=== PATIENT | female | born 1985 | race Hispanic/Latino ===

== ENCOUNTER 2022-07-24 09:00 | Observation (INO) | payer MEDICAID, SELFPAY ==
[2022-07-24] VITALS (37 sets, daily range): BP systolic 112–173; BP diastolic 68–116; PULSE 76–110; RESP 11–32; TEMP 36.7–36.8; O2SAT 96–100
--- NOTE | ~2022-07-24 | XR_ITS ---
EXAMINATION: XR chest 2V DATE: 07/24/2022 11:54 INDICATION: Cough for three weeks TECHNIQUE: PA and lateral views of the chest are obtained. COMPARISON: None available FINDINGS: The lungs are free of acute opacities. No pleural effusion or pneumothorax. The cardiomedia stinal silhouette is normal. There is mild thoracic spondylosis. IMPRESSION: 1. No acute cardiopulmonary abnormality. Reviewed, dictated and finalized at location L. CONSULTANT
--- NOTE | ~2022-07-24 | US_ITS ---
EXAMINATION: US carotid duplex BI DATE: 07/24/2022 16:59 INDICATION: Right facial paresthesias and numbness. TECHNIQUE: Grayscale, color Doppler, and pulsed Doppler images of the cervical carotid arteries were obtained. The degree of vessel stenosis is placed in one of the following categories: normal, <50%, 5 0-69%, >=70% but less than near-occlusion, near-occlusion, or total occlusion. Note that percent sten osis relative to normal distal artery lumen diameter is indirectly measured from velocity measurement s as described by Joss, et al. Radiology 2003; 229:340-346. COMPARISON: None. FINDINGS: RIGHT: The right common carotid artery (CCA) peak systolic velocity (PSV) is 121 cm/s. The right internal ca rotid artery (ICA) PSV is 90 cm/s. The right ICA end-diastolic velocity (EDV) is 43 cm/s. The right I CA/CCA PSV ratio is 0.7. Grayscale and color Doppler images yield an estimate of <50% diameter reduct ion from plaque in the ICA. There is antegrade flow in the right vertebral artery. LEFT: The left CCA PSV is 83 cm/s. The left ICA PSV is 84 cm/s. The left ICA EDV is 44 cm/s. The left ICA/C CA PSV ratio is 1.0. Grayscale and color Doppler images yield an estimate of <50% diameter reduction from plaque in the ICA. There is antegrade flow in the left vertebral artery. IMPRESSION: 1. <50% stenosis in the right internal carotid artery. 2. <50% stenosis in the left internal carotid artery. Reviewed, dictated and finalized at location A. FACTURING TECHNICIAN
--- NOTE | ~2022-07-24 | CT_ITS ---
EXAMINATION: CT brain wo con INDICATION: Right-sided facial numbness COMPARISON: None TECHNIQUE: Standard unenhanced head CT. The dose-length product (DLP) was 605.33 mGy-cm. The mA was a djusted according to patient size. Iterative reconstruction technique was employed. FINDINGS: There is no intracranial hemorrhage, acute infarction, or abnormal mass lesion. The ventric les are normal. There is no abnormal mass effect or midline shift. The mariano-white matter differentiat ion is normal. The basal cisterns are patent. The orbits are normal. The paranasal sinuses, mastoids and calvarium are normal. IMPRESSION: 1. No acute intracranial abnormality. Reviewed, dictated and finalized at location L. STITCHER
--- NOTE | ~2022-07-24 | MR_ITS ---
EXAMINATION: MR brain/brain stem wo/w con DATE: 07/25/2022 08:06 INDICATION: Right-sided face paresthesias. TECHNIQUE: Magnetic resonance imaging (MRI) of the brain and brainstem was performed without and with 20 mL MultiHance intravenous contrast. COMPARISON: Head CT 07/24/2022 FINDINGS: There is no intracranial hemorrhage, acute infarction, or abnormal intracranial mass lesion . The ventricles are normal in size. The paranasal sinuses are clear. The orbits are normal. The mast oid air cells are normal. IMPRESSION: 1. Normal brain. Reviewed, dictated and finalized at location A. HOST/HOSTESS IMPRESSION: 1. Normal brain.
--- NOTE | 2022-07-24 10:43 | ECG_ITS ---
Measurements Intervals [place] Rate: 87 P: 15 LA: 147 QRS: 30 QRSD: 85 T: 12 QT: 346 QTc: 418 Interpretive Statements SINUS RHYTHM NO PREVIOUS ECG AVAILABLE FOR COMPARISON Electronically Signed On 07-24-2022 15:46:14 EVENT AV OPERATOR by Jonathan Kuhn M.D.
--- NOTE | 2022-07-24 10:45 | ED.NEUROSD ---
HPI - Neuro Symptoms/Deficit General Chief Complaint: Neuro Symptoms/Deficit <EVELINA Bran Last Filed: 07/24/22 17:57> Stated Complaint: Referred from urgent care - cough for 3 weeks <EVELINA Bran Filed: 07/24/22 17:57> Time Seen by Provider: 07/24/22 10:12 <EVELINA Bran Last Filed: 07/24/22 17:57> Source: patient <EVELINA Bran Last Filed: 07/24/22 17:57> Mode of arrival: ambulatory <EVELINA Bran Filed: 07/24/22 17:57> Limitations: no limitations <EVELINA Bran Filed: 07/24/22 17:57> History of Present Illness HPI Narrative: Patient is a 36-year-old female who presents the ED with report of right-sided facial numbness/tingling. Patient reports she has had a cough and sinus issues for the last 3 weeks. She developed some tingling on the right side of her face last night, but did not think much of it. She woke up around 6:30 AM this morning with persistent paresthesias in her right-sided face. She states it feels like she just went to the dentist and had lidocaine administered to her right-sided lips, chin, nose, around her eye. She denies any other neurologic symptoms, denies confusion, slurred speech, dysphagia, dysarthria, weakness of arm or leg, dizziness, lightheadedness, headache, vision changes, chest pain, difficulty breathing. Patient went to an urgent care this morning and was referred here for further evaluation. Patient reports a history of a TIA 12 years ago which was attributed to her being on oral contraceptives. <EVELINA Bran Last Filed: 07/24/22 17:57> Related Data Allergies/Adverse Reactions: Allergies Allergy/AdvReac Type Severity Reaction Status Date / Time diphenhydramine Allergy Anaphylaxis Verified 07/24/22 09:33 [From Benadryl] <EVELINA Bran Filed: 07/24/22 17:57> Review of Systems Review of Systems: CONSTITUTIONAL: Denies fever, chills, or sweats. EYES: Denies visual changes. ENT: See HPI. CARDIOVASCULAR: Denies chest pain, palpitations, or edema. RESPIRATORY: See HPI. GASTROINTESTINAL: Denies abdominal pain, nausea, vomiting, or diarrhea. GENITOURINARY: Denies dysuria or hematuria. SKIN: Denies rash or itching. MUSCULOSKELETAL: Denies back pain, joint pain, or myalgia. NEUROLOGIC: See HPI. <Samaria Moreau PA-C - Last Filed: 07/24/22 17:57> All systems reviewed & are unremarkable except as noted in HPI and below <Samaria Moreau PA-C - Last Filed: 07/24/22 17:57> [facility] Past Medical History Medical History: Medical History Interstitial cystitis Transient ischemic attack Attributed to oral contraceptives. <Samaria Moreau PA-C - Last Filed: 07/24/22 17:57> Surgical History Surgical History: Surgical History History of cystoscopy <Samaria Moreau PA-C - Last Filed: 07/24/22 17:57> Family History Family History: Family History Mother Trigeminal neuralgia Cerebrovascular accident Hypertension Father Diabetes mellitus <Samaria Moreau PA-C - Last Filed: 07/24/22 17:57> Social History Social History: Social History Social History: The patient lives in [place] with her family. She has 4-year-old twin boys. Nonsmoker. No alcohol or illicit substance abuse. She designates her mother is her surrogate decision maker and she wishes to be a full code. <Samaria Moreau PA-C - Last Filed: 07/24/22 17:57> Exam Narrative: GENERAL: Well appearing, morbidly obese, non-toxic, in no acute distress. HEAD: Normocephalic, atraumatic. EYES: PERRL/EOMI, conjunctivae clear bilaterally. No nystagmus. NOSE:
[2022-07-24 11:14] LABS: Basophils Absolute Auto 0.1 K/mm3 (0.0-0.1); Basophils Percent Auto 0.7 % (0.2-1.2); Eosinophils Absolute Auto 0.4 K/mm3 (0-0.3); Eosinophils Percent Auto 3.5 % (0-4.4); Hematocrit 43.2 % (37.0-47.0); Hemoglobin 14.4 g/dL (12.0-15.0); Immature Granulocyte Absolute 0.03 K/mm3 (0.00-0.031); Immature Granulocyte Percent A 0.3 % (0-0.5); Lymphocytes Absolute Auto 3.07 K/mm3 (0.9-3.2); Lymphocytes Percent Auto 30.5 % (18.3-44.2); Mean Corpuscular HGB Conc 33.3 g/dl (32-36); Mean Corpuscular Hemoglobin 28.9 pg (26-34); Mean Corpuscular Volume 86.7 fl (80-100); Mean Platelet Volume 9.2 fl (7.4-10.4); Monocytes Absolute Auto 0.5 K/mm3 (0.1-0.6); Monocytes Percent Auto 5.2 % (2.6-8.5); Neutrophils Percent Auto 59.8 % (45.5-73.1); Platelet Count Result 276 k/mm3 (150-375); Red Blood Count 4.98 M/mm3 (4.2-5.4); Red Cell Distribution Width 13.2 % (11.5-14.5); White Blood Count 10.1 K/mm3 (4.5-10.0)
[2022-07-24 11:23] LABS: Alanine Aminotransferase 49 U/L (6-35); Albumin Level 4.5 g/dL (3.5-5.1); Alkaline Phosphatase 65 U/L (38-126); Anion Gap 7 mmol/L (8-16); Aspartate Amino Transferase 36 U/L (14-36); Bilirubin,Total 0.4 mg/dL (0.2-1.3); Blood Urea Nitrogen 11 mg/dL (7-17); Calcium 8.8 mg/dL (8.4-10.2); Carbon Dioxide 28 mmol/L (22-30); Chloride 102 mmol/L (98-107); Estimated CRCL calculation 171 ml/min; Estimated Glomerular Filt Rate > 60; Glucose 112 mg/dL (65-110); Magnesium 1.9 mg/dL (1.6-2.3); Sodium 137 mmol/L (137-145)
[2022-07-24 11:26] LABS: Appearance Urine Clear (Clear); Bilirubin Urine Negative (Negative); Blood Urine Negative (Negative); Color Urine Yellow (Yellow); Glucose Urine UA Negative (Negative); Ketones Urine Negative (Negative); Leukocyte Esterase Ur Negative LEU/UL (Negative); Nitrate Urine Negative (Negative); Protein Urine Negative (Negative); Specific Grav Ur >= 1.030 (1.001-1.035); Urobilinogen Urine 0.2 mg/dL (<2.0); pH Urine 5.5 (5.0-9.0)
[2022-07-24 11:40] LABS: Add Urine Microscopic? NO
[2022-07-24 12:52] LABS: Influenza A QL RT-PCR Negative (Negative); Influenza B QL RT-PCR Negative (Negative); SARS-CoV-2 RNA PCR Negative
[2022-07-24] MEDS: ASPIRIN 325 MG TABLET PO (14:23)
--- NOTE | 2022-07-24 16:39 | PC.NURSE ---
reg diet food tray ordered
--- NOTE | 2022-07-24 17:00 | PM.IMHP ---
H&P: HPI History of Present Illness Date/Time: 07/24/22 17:00 Chief Complaint: Numbness and tingling of the right side of the face. Narrative: This is a pleasant 36-year-old female with history of TIA 12 to 14 years ago attributed to use of Nicole contraceptives who presented to the emergency department from home for evaluation of numbness and tingling on the right side of her face. Patient provides the following history. She had mild paresthesias over the right cheek when she went to bed last night and this morning her symptoms were worse with numbness and tingling throughout the entire right side of her face to include the right side of the lips, buccal mucosa, and tongue. She also has disturbed taste on that right side. She has had URI symptoms for last several weeks and while the symptoms have improved she continues to have a nonproductive cough. She denies headache, vertigo, visual changes, facial droop, and difficulty speaking and swallowing. She denies ear pain and has not noticed any wounds or vesicle. No chest pain, pleuritic pain, palpitations, or sensations of racing heart. She has a history of tick bite many years ago and was tested extensively and has no history of Lyme disease. Review of Systems Review of Systems: Twelve systems were reviewed and are negative except for as per HPI. [facility] Past Medical History Medical History (Updated 07/24/22 @ 17:46 by Dianne Roldan PA-C) Interstitial cystitis Transient ischemic attack Attributed to oral contraceptives. Surgical History Surgical History (Updated 07/24/22 @ 17:43 by Dianne Roldan PA-C) History of cystoscopy Family History Family History (Updated 07/24/22 @ 17:43 by Dianne Roldan PA-C) Mother Trigeminal neuralgia Cerebrovascular accident Hypertension Father Diabetes mellitus Social History Social History (Updated 07/24/22 @ 17:44 by Dianne Roldan PA-C) Social History: The patient lives in [place] with her family. She has 4-year-old twin boys. Nonsmoker. No alcohol or illicit substance abuse. She designates her mother is her surrogate decision maker and she wishes to be a full code. Meds Home Medications and Allergies Allergies Allergy/AdvReac Type Severity Reaction Status Date / Time diphenhydramine Allergy Anaphylaxis Verified 07/24/22 09:33 [From [facility]] Vital Signs Vital Signs - 24 hr 07/24/22 09:16 07/24/22 10:41 07/24/22 09:58 Pulse Rate 95 110 H 87 Respiratory Rate 16 18 15 Blood Pressure 145/101 H 112/85 Pulse Oximetry 98 97 98 Oxygen Delivery Room Air 07/24/22 10:00 07/24/22 10:01 07/24/22 10:15 Pulse Rate 84 86 81 Respiratory Rate 11 L 16 13 Blood Pressure 135/81 136/80 Pulse Oximetry 98 98 99 Oxygen Delivery 07/24/22 10:16 07/24/22 10:30 07/24/22 10:31 Pulse Rate 88 81 89 Respiratory Rate 20 12 20 Blood Pressure 130/78 Pulse Oximetry 98 99 99 Oxygen Delivery 07/24/22 10:45 07/24/22 10:46 07/24/22 11:01 Pulse Rate 85 107 H 100 Respiratory Rate 17 30 H 22 H Blood Pressure 158/101 H Pulse Oximetry 96 98 98 Oxygen Delivery 07/24/22 11:02 07/24/22 11:15 07/24/22 11:16 Pulse Rate 87 83 89 Respiratory Rate 14 18 21 H Blood Pressure 155/90 H 141/83 H Pulse Oximetry 99 99 99 Oxygen Delivery 07/24/22 11:52 07/24/22 11:54 07/24/22 12:17 Pulse Rate 92 88 110 H Respiratory Rate 18 14 32 H Blood Pressure 133/76 Pulse Oximetry 99 99 96 Oxygen Delivery 07/24/22 12:30 07/24/22 12:31 07/24/22 12:46 Pulse Rate 83 88 90 Respiratory Rate 18 19 22 H Blood Pressure 152/89 H Pulse Oximetry 98 98 99 Oxygen Delivery 07/24/22 13:37 07/24/22 13:45 07/24/22 13:46 Pulse Rate 88 98 95 Respiratory Rate 18 19 20 Blood Pressure 158/87 H 145/105 H Pulse Oximetry 98 97 97 Oxygen Delivery 07/24/22 14:00 07/24/22 14:01 07/24/22 15:25 Pulse Rate 93 85 84 Respiratory Rate 24 H 18 22 H Blood Pressure 160/105 H Pulse Oximetry 9
--- NOTE | 2022-07-24 18:59 | ADMGEN ---
This patient, Loren Dawkins, was admitted to Virtual Bed 3rd Floor-1. Patient/family oriented to hospital policies and general routines including ID bracelet, bed and alarms, visiting hours, pain management, procedures, bathroom and other care routines, personal items, smoking policy, room service/diet, and visiting hours. Information on how to activate the Rapid Response Team has been discussed. Patient/Family are encouraged to report perceived risks to care and to ask questions if they do not understand what they are told or what they should do.
[2022-07-25] VITALS: PULSE 88
[2022-07-25 04:00] VITALS: PULSE 87
[2022-07-25 05:27] LABS: Anion Gap 6 mmol/L (8-16); Blood Urea Nitrogen 11 mg/dL (7-17); Calcium 8.5 mg/dL (8.4-10.2); Carbon Dioxide 29 mmol/L (22-30); Chloride 105 mmol/L (98-107); Cholesterol 206 mg/dL (0-200); Estimated CRCL calculation 145 ml/min; Estimated Glomerular Filt Rate > 60; Glucose 129 mg/dL (65-110); HDL Direct 36 mg/dL; Sodium 140 mmol/L (137-145); Triglycerides 190 mg/dL (<150)
[2022-07-25 05:37] LABS: LDL Cholesterol Direct 119 mg/dL
[2022-07-25 06:00] VITALS: BP 145/81; PULSE 81; RESP 16; TEMP 36.4; O2SAT 100
[2022-07-25 07:02] LABS: Folic Acid 16.5 ng/mL (2.76->20)
[2022-07-25] MEDS: ASPIRIN 81 MG ENTERIC TABLET PO (08:07)
[2022-07-25] MEDS: MULTIVITAMINS /C LUTEIN (CENTRUM SILVER) TABLET *BKC 1 TAB PO (08:07)
[2022-07-25] MEDS: PERFLUTREN LIPID MICROSPHERES 1.5 ML VIAL DILUTED TO 10 ML TOTAL VOLUME IV PUSH (11:30)
--- NOTE | 2022-07-25 11:30 | IVDEFINITY ---
Prior to administration of IV Definity the patient was educated on the risks and benefits of the imaging enhancing agent including potential adverse side effects. The patient verbalized understanding. Allergies were verified. No exclusion criteria were identified and at least one of the following inclusion criteria were met: 1) physician request, 2) patient technically difficult to image (per the [employer] Echocardi[employer] guidelines of two or more segments not discernable within the apical view), or 3) questionable left ventricular function. ?
--- NOTE | 2022-07-25 11:49 | WPDNEURCNPN ---
Consult date: 07/25/22 HPI: Loren Dawkins is a 36 year old female admitted to the hospital through the emergency room with the complaints of right-sided facial numbness and tingling sensation in addition to recent history of cough and sinus issues of 3 weeks duration reportedly she developed right-sided tingling involving her face woke up around 630 in the morning with persistent paresthesia in her right side of the face as if she has gone to the dentist gave no history of any other associated neurological symptomatology, patient does have ongoing history of interstitial cystitis, TIA in the past attributed to oral contraceptives has no history of smoking or drinking initial examination in the emergency room documented decreased sharp touch sensation to the right side of the face but otherwise no focal neurological deficit vital signs were stable CBC was normal comprehensive metabolic panel was normal UA was negative testing for influenza A,B and sarswere negative. CT of the head was negative and EKG was without any atrial fibrillation brain MRI today is negative psoas the Doppler studies of the carotid PMFSH Past Medical History Medical History Interstitial cystitis Transient ischemic attack Attributed to oral contraceptives. Surgical History Surgical History History of cystoscopy Family History Family History Mother Trigeminal neuralgia Cerebrovascular accident Hypertension Father Diabetes mellitus Social History Social History Social History: The patient lives in [place] with her family. She has 4-year-old twin boys. Nonsmoker. No alcohol or illicit substance abuse. She designates her mother is her surrogate decision maker and she wishes to be a full code. Smoking status: Never smoker Alcohol intake: never Substance use: never Lack of Transportation: No Lack of Food: Never True Current Housing: I Have Housing Concerned About Future Housing: No Difficulty Paying Gas/Electric Bills: No Difficulty Paying for Meds: No Currently Unemployed: No Education: High School Diploma/GED Difficulty w/ Childcare or Family Care: No Spiritual care concerns: No Meds Home Medications and Allergies Home Medications Medication Instructions Recorded Confirmed Type multivit with minerals-iron 18 1 tablet PO DAILY 07/24/22 07/24/22 History mg-folic ac 400 mcg-vit K 25 mcg tablet (Adults Multivitamin) Allergies Allergy/AdvReac Type Severity Reaction Status Date / Time diphenhydramine Allergy Swelling Verified 07/24/22 18:48 [facility] Vital Signs Vital Signs - 24 hr 07/24/22 11:52 07/24/22 11:54 07/24/22 12:17 Temperature Pulse Rate 92 88 110 H Respiratory Rate 18 14 32 H Blood Pressure 133/76 Pulse Oximetry 99 99 96 07/24/22 12:30 07/24/22 12:31 07/24/22 12:46 Temperature Pulse Rate 83 88 90 Respiratory Rate 18 19 22 H Blood Pressure 152/89 H Pulse Oximetry 98 98 99 07/24/22 13:37 07/24/22 13:45 07/24/22 13:46 Temperature Pulse Rate 88 98 95 Respiratory Rate 18 19 20 Blood Pressure 158/87 H 145/105 H Pulse Oximetry 98 97 97 07/24/22 14:00 07/24/22 14:01 07/24/22 15:25 Temperature Pulse Rate 93 85 84 Respiratory Rate 24 H 18 22 H Blood Pressure 160/105 H Pulse Oximetry 97 98 97 07/24/22 15:30 07/24/22 15:31 07/24/22 15:45 Temperature Pulse Rate 90 87 85 Respiratory Rate 18 18 24 H Blood Pressure 159/84 H 157/114 H Pulse Oximetry 99 99 97 07/24/22 15:46 07/24/22 16:00 07/24/22 16:01 Temperature Pulse Rate 88 102 H 100 Respiratory Rate 16 12 19 Blood Pressure 173/116 H Pulse Oximetry 98 100 100 07/24/22 16:15 07/24/22 18:50 07/24/22 23:00 Temperature 36.7 C 36
[2022-07-25 12:00] VITALS: PULSE 102
--- NOTE | 2022-07-25 13:29 | WPDNEURCNPN ---
Assessment and Plan Assessment and plan (1) Facial paresthesia: Code(s): R20.2 - Paresthesia of skin Status: Acute Plan 1 impending Jones's palsy which has been ruled out 2 possibility of demyelinating disease in a younger person with a previous symptomatology but again the MRI of the brain is completely negative we do not need to pursue with spinal tap 3 TIA up possibility Doppler study of the carotid is less than 50% stenosis bilaterally she can be discharged with instruction to return to the office for the follow-up sign Dr. ng is thinking Consult date: 07/25/22 HPI: Loren Dawkins is a 36 year old female admitted to the hospital through the emergency room for the complaints of right-sided facial numbness and paresthesia along with the history of cough and sinus issues as per the information available symptomatology developed at last night but she woke up around 6:30 a.m. in the morning with persistent paresthesias on her right side of the face describing as if she has gone to the dentist received lidocaine she never had such symptomatology in the past but she does have a history of TIA about 12 years ago in addition to history of transient ischemic attack and also interstitial cystitis Review of Systems Review of Systems: All systems reviewed & are unremarkable except as noted in HPI and below PMFSH Past Medical History Medical History Interstitial cystitis Transient ischemic attack Attributed to oral contraceptives. Surgical History Surgical History History of cystoscopy Family History Family History Mother Trigeminal neuralgia Cerebrovascular accident Hypertension Father Diabetes mellitus Social History Social History Social History: The patient lives in [place] with her family. She has 4-year-old twin boys. Nonsmoker. No alcohol or illicit substance abuse. She designates her mother is her surrogate decision maker and she wishes to be a full code. Smoking status: Never smoker Alcohol intake: never Substance use: never Lack of Transportation: No Lack of Food: Never True Current Housing: I Have Housing Concerned About Future Housing: No Difficulty Paying Gas/Electric Bills: No Difficulty Paying for Meds: No Currently Unemployed: No Education: High School Diploma/GED Difficulty w/ Childcare or Family Care: No Spiritual care concerns: No Meds Home Medications and Allergies Home Medications Medication Instructions Recorded Confirmed Type multivit with minerals-iron 18 1 tablet PO DAILY 07/24/22 07/24/22 History mg-folic ac 400 mcg-vit K 25 mcg tablet (Adults Multivitamin) Allergies Allergy/AdvReac Type Severity Reaction Status Date / Time diphenhydramine Allergy Swelling Verified 07/24/22 18:48 [From [facility]] Vital Signs Vital Signs - 24 hr 07/24/22 13:37 07/24/22 13:45 07/24/22 13:46 Temperature Pulse Rate 88 98 95 Respiratory Rate 18 19 20 Blood Pressure 158/87 H 145/105 H Pulse Oximetry 98 97 97 07/24/22 14:00 07/24/22 14:01 07/24/22 15:25 Temperature Pulse Rate 93 85 84 Respiratory Rate 24 H 18 22 H Blood Pressure 160/105 H Pulse Oximetry 97 98 97 07/24/22 15:30 07/24/22 15:31 07/24/22 15:45 Temperature Pulse Rate 90 87 85 Respiratory Rate 18 18 24 H Blood Pressure 159/84 H 157/114 H Pulse Oximetry 99 99 97 07/24/22 15:46 07/24/22 16:00 07/24/22 16:01 Temperature Pulse Rate 88 102 H 100 Respiratory Rate 16 12 19 Blood Pressure 173/116 H Pulse Oximetry 98 100 100 07/24/22 16:15 07/24/22 18:50 07/24/22 23:00 Temperature 36.7 C 36.8 C Pulse Rate 90 84 76 Respiratory Rate 16 16 16 Blood Pressure 145/91 H 147/84 H 125/68 Pulse Oxime
[2022-07-25 13:48] VITALS: BP 128/77; PULSE 87; RESP 18; TEMP 36.8; O2SAT 98
--- NOTE | 2022-07-25 15:09 | PM.DS ---
DS: Admitting Diagnosis Discharge Date 07/25/22 1529 Admitting Diagnosis Paresthesia of skin Elevated blood-pressure reading, without diagnosis of hypertension DS: Discharge Diagnosis Discharge Diagnosis (1) Facial paresthesia: Code(s): R20.2 - Paresthesia of skin Status: Acute (2) Elevated blood pressure reading: Code(s): R03.0 - Elevated blood-pressure reading, without diagnosis of hypertension Status: Acute (3) Hyperlipidemia: Code(s): E78.5 - Hyperlipidemia, unspecified Status: Chronic DS: Summary Hospital Course Reason for hospitalization: Numbness and tingling right side of heart. Hospital Course: Loren Dawkins is a 36-year-old female with history of TIA 12 to 14 years ago attributed to use of Nicole contraception who presented to the emergency department from home for evaluation of numbness and tingling on the right side of her face. She reported mild paresthesias over the right cheek when she went to bed the night before admission and the next morning her symptoms were worse with numbness and tingling throughout the entire right side of her face, including the right side of the lips, buccal mucosa, and tongue. She also has disturbed taste on that right side. She had URI symptoms for last several weeks and while the symptoms improved she continued to have a nonproductive cough. She denied headache, vertigo, visual changes, facial droop, and difficulty speaking and swallowing. She denied ear pain and has not noticed any wounds or vesicle. No chest pain, pleuritic pain, palpitations, or sensations of racing heart. She also reported a history of tick bite many years ago and was tested extensively and has no history of Lyme disease. She was admitted to the medical floor for TIA work up and evaluation by Neurology. MRI was negative for acute stroke. Physical exam was negative for Jones's Palsy. EKG showed SR without ectopy. Echocardiogram was negative for PFO. BP improved 128/77 on discharge without starting antihypertensives. Lipid panel showed LDL 119, HDL 36, and triglycerides 190. ACVSD lifetime risk 39%. Given her previous TIA and symptoms, baby aspirin 81 mg PO and lipitor 40 mg PO were prescribed. She will follow up with neurology outpatient for further workup for demyelinating disease. She was discharged home in stable condition. Status at Discharge Cognitive/behavioral status at discharge: Alert, AOx4. Baseline Functional status at discharge: independent ambulation Overall status at discharge: patient is progressing back to baseline Time Spent with Patient Time attestation: Total time spent providing and/or coordinating discharge services: Time spent: Greater than 30 minutes Exam Narrative: General: Well-developed female sitting up in bed no distress. BMI: 41.4. Temp 98.1F, HR 87, RR 18, BP 128/77, spO2 98% room air. HEENT: Normocephalic, atraumatic. PERRL, EOMI. Sclera anicteric. Oral mucosa moist. Oropharynx clear. Neck: Supple. No carotid bruits. Respiratory: Lungs are clear to auscultation bilaterally. Cardiovascular: Regular rate and rhythm with S1-S2. No murmur. Gastrointestinal: Abdomen is soft, obese, nontender, and nondistended with positive bowel sounds. Skin: Warm and dry. No rash or lesions on limited exam. Extremities: No cyanosis, clubbing, or edema. Radial and pedal pulses intact. Neurological: Alert and oriented x4. Cranial nerves 2-12 are grossly intact. She is able to close her eyes tightly. Speech is clear. No facial asymmetry. No pronator drift. Normal finger-nose, rapid alternating movements, and his chin. Strength 5/5 in upper and lower extremities. Decreased sharp touch on the right side of the face. Hand blocking machine operator second and foot pushes equal bilaterally. Psychiatric: Pleasant and cooperative with normal mood and affect. Judgment and insight intact. DS: Data Data Completed and Pending Labs on day of discharge: Labs from last 24 hours 07/25/22 07/25/22 0
--- NOTE | 2022-07-25 16:10 | ECHO_ITS ---
Patient Info Name: Loren Dawkins Age: 36 years : 1985 Gender: Female Ht: 67 in Wt: 264 lbs BSA: 2.44 m2 HR: 81 bpm BP: 145 / 81 mmHg Heart Rhythm: Sinus Rhythm Technical Quality: Fair Exam Date: 07/25/2022 10:40 AM Exam Location: [facility] Patient Status: Outpatient Admit Date: 07/24/2022 Staff Ordering Physician: Dianne Roldan PA-C Gun Striper: Jenni Wong RDCS Attending Provider: Arnav Berg MD Referring Physician: Jamar GRAHAM; Exam Type: CA echo doppler w bubble study Study Info Indications - neuro symptoms, hx tia Complete two-dimentional, color flow and Doppler transthoracic echocardiogram is performed with agitated saline and with contrast to opacify the left ventricle and to improve the delineation of the left ventricle endocardial borders. Contrast/Agitated Saline Contrast/Ag. Saline: Definity Amount: 3.00 ml Administered By: Jenni Wong RDCS Existing IV Access: Yes IV Access Condition: patent with no signs of infiltration Contrast/Ag. Saline: Agitated Saline Amount: 30.00 ml Administered By: Ari Tineo ARIK Existing IV Access: Yes IV Access Condition: patent with no signs of infiltration Summary 1. Left ventricular chamber dimension is normal. 2. Definity contrast administered improved wall motion interpretation. 3. Left ventricular systolic function is normal, estimated at 60-65%. 4. The left ventricular diastolic function is grade I diastolic dysfunction. 5. E/e' 7 is not elevated. 6. No pulmonary hypertension, estimated pulmonary arterial systolic pressure is 21 mmHg. Left Ventricle E/e' 7 is not elevated. Definity contrast administered improved wall motion interpretation. Left ventricular chamber dimension is normal. Left ventricular systolic function is normal, estimated at 60-65%. The left ventricular diastolic function is grade I diastolic dysfunction. Right Ventricle Right ventricular systolic function is normal and with normal TAPSE 2.3 cm. Right ventricular chamber dimension is normal. Left Atria Left atrial chamber dimension is normal. Right Atria Agitated saline injection with and without valsalva maneuver opacified right side cardiac chambers without obvious shunt to left side cardiac chambers. Right atrial chamber dimension is normal. Atrial Septum Intact interatrial septum visualized by 2D and agitated saline imaging. Aortic Valve The aortic valve is trileaflet. There is no aortic valve stenosis. There is no aortic valve regurgitation. Pulmonic Valve There is no pulmonic regurgitation. Mitral Valve There is no mitral valve stenosis. There is no mitral valve regurgitation. Tricuspid Valve There is no tricuspid valve regurgitation. No pulmonary hypertension, estimated pulmonary arterial systolic pressure is 21 mmHg. Pericardium/Pleural There is no pericardial effusion. Inferior Vena Cava Normal inferior vena cava with >50% collapse upon inspiration consistent with normal right atrial pressure, 5 mmHg. Aorta The aortic root size at the sinus of Valsalva is normal. Left Ventricular Outflow Tract Name Value Normal LVOT 2D
== END 2022-07-25 16:13 | disposition home or self-care (01) ==
LOC: ANHED 10:12 → ANH3MEDSUR 17:56 → ANH2MED 07-25 08:51 → ANH3MEDSUR 07-28 13:30
PROVIDERS: Physician Assistant; Admitting Provider Internal Medicine; Emergency Provider Emergency Medicine; Visit Provider Student in an Organized Health Care Education/Training Program
DX: R20.2 Paresthesia of skin (principal); R03.0 Elevated blood-pressure reading, without diagnosis of hypertension; E78.5 Hyperlipidemia, unspecified; E66.01 Morbid (severe) obesity due to excess calories; Z68.41 Body mass index [BMI] 40.0-44.9, adult; I51.89 Other ill-defined heart diseases; Z20.822 Contact with and (suspected) exposure to COVID-19; Z86.73 Personal history of transient ischemic attack (TIA), and cerebral infarction without residual deficits; Z79.899 Other long term (current) drug therapy; Z82.0 Family history of epilepsy and other diseases of the nervous system; Z82.3 Family history of stroke
CPT/HCPCS: 36415; 70450; 70553; 71046; 80048; 80053; 80061; 81003; 81025; 82607; 82746; 83735; 85025; 87636; 93005; 93306; 93880; 96374; 96375; 99285; A9270; A9577; G0378; G0379; Q9957